=== PATIENT | male | born 1990 | race African-American/Black ===

== ENCOUNTER 2019-07-31 12:07 | Emergency (ER) | payer OTHER ==
[2019-07-31] MEDS ORDERED: KETOROLAC 30 MG/1 ML INJ IV ONE (12:41)
[2019-07-31] MEDS ORDERED: HYDROmorphone 1 MG/1 ML INJ IV ONE ×3 (12:41→14:26)
[2019-07-31] MEDS ORDERED: ONDANSETRON 4 MG/2 ML INJ IV ONE (12:41)
--- NOTE | 2019-07-31 12:45 | Emergency Department Report ---
HPI - HPI HPI: Room 20 The patient is 28-year-old male presenting with a chief complaint right sided abdominal pain. Patient states his pain began this morning with pain in the right lower quadrant. Patient missed and nausea and vomiting. The patient speaks limited [place] Location: [See above] Duration: [See above] Quality: [See above] Severity: [See above] Timing: [See above] Context: [See above] Modifying factors: [See above] Associated signs and symptoms: [see above] <TYLER ANNA - Last Filed: 07/31/19 14:48> <RONNELL MORALES - Last Filed: 07/31/19 15:58> - General Chief Complaint: Abdominal Pain Time Seen by Provider: 07/31/19 12:34 ED Past Medical Hx - Past Medical History Previous Medical History?: No - Surgical History Past Surgical History?: No - Family History Family history: no significant - Social History Smoking Status: Unknown if ever smoked Substance Use Type: None <TYLER ANNA - Last Filed: 07/31/19 14:48> <RONNELL MORALES - Last Filed: 07/31/19 15:58> - Medications Home Medications: Home Medications Medication Instructions Recorded Confirmed Last Taken Type HYDROcodone/APAP 5-325 [[place] 1 - 2 each PO Q6HR PRN #20 tablet 07/31/19 Unknown Rx 5/325] Ibuprofen [Motrin 800 MG tab] 800 mg PO Q8HR PRN #20 tablet 07/31/19 Unknown Rx Promethazine [Phenergan] 25 mg PO Q6HR PRN #20 tab 07/31/19 Unknown Rx ED Review of Systems ROS: Stated complaint: ABD PAIN Other details as noted in HPI Gastrointestinal: abdominal pain, nausea, vomiting <TYLER ANNA - Last Filed: 07/31/19 14:48> ROS: Stated complaint: ABD PAIN Other details as noted in HPI <RONNELL MORALES - Last Filed: 07/31/19 15:58> Physical Exam - Physical Exam Vital Signs: Vital Signs 07/31/19 12:17 Temperature 97.9 F Pulse Rate 74 Respiratory 22 Rate Blood Pressure 127/84 O2 Sat by Pulse 98 Oximetry Physical Exam: GENERAL: The patient is well-developed well-nourished male lying on appearing to be in moderate discomfort. [] HEENT: Normocephalic. Atraumatic. Extraocular motions are intact. Patient has moist mucous membranes. NECK: Supple. Trachea midline CHEST/LUNGS: Clear to auscultation. There is no respiratory distress noted. HEART/CARDIOVASCULAR: Regular. There is no tachycardia. There is no gallop rub or murmur. ABDOMEN: Abdomen is soft, with tenderness to palpation in the right side of the abdomen without rebound or guarding. Patient has normal bowel sounds. There is no abdominal distention. SKIN: There is no rash. There is no edema. There is no diaphoresis. NEURO: The patient is awake, alert, and oriented. The patient is cooperative. The patient has no focal neurologic deficits. The patient has normal speech MUSCULOSKELETAL: There is no CVA tenderness. There is no evidence of acute injury. <TYLER ANNA - Last Filed: 07/31/19 14:48> - Physical Exam Vital Signs: Vital Signs 07/31/19 07/31/19 07/31/19 12:17 13:00 14:41 Temperature 97.9 F 98.4 F Pulse Rate 74 60 Respiratory 22 16 18 Rate Blood Pressure 127/84 Blood Pressure 124/89 [Right] O2 Sat by Pulse 98 100 Oximetry 07/31/19 15:30 Temperature Pulse Rate 80 Respiratory 16 Rate Blood Pressure Blood Pressure 121/76 [Right] O2 Sat by Pulse 100 Oximetry <RONNELL MORALES - Last Filed: 07/31/19 15:58> ED Course Vital Signs 07/31/19 12:17 Temperature 97.9 F Pulse Rate 74 Respiratory 22 Rate Blood Pressure 127/84 O2 Sat by Pulse 98 Oximetry <TYLER ANNA - Last Filed: 07/31/19 14:48> Vital Signs 07/31/19 07/31/19 07/31/19 12:17 13:00 14:41 Temperature 97.9 F 98.4 F Pulse Rate 74 60 Respiratory 22 16 18 Rate Blood Pressure 127/84 Blood Pressure 124/89 [Right] O2 Sat by Pulse 98 100 Oximetry 07/31/19 15:30 Temperature Pulse Rate 80 Respiratory 16 Rate Blood Pressure Blood Pressure 121/76 [Right] O2 Sat by Pulse 100 Oximetry <RONNELL MORALES - Last Filed: 07/31/19 15:58> ED Medical Decision Making - Lab Data Result diagrams: 07/31/19 12:43 07/31/19 12:43 - Radiology Data Radiology results: report reviewed (CT abdomen and pelvis), image reviewed (CT abdomen and pelvis) [facility] [address] [place] [address] Cat Scan Report Signed Patient: KYLE ALEMAN MR#: [id number] : 1990 Acct:[id number] Age/Sex: 28 / M ADM Date: 07/31/19 Loc: ED Attending Dr: Ordering Physician: TYLER ANNA MD Date of Service: 07/31/19 Procedure(s): CT abdomen pelvis wo con Accession Number(s): [id number] cc: TYLER ANNA MD CT ABDOMEN AND PELVIS WITHOUT CONTRAST INDICATION / CLINICAL INFORMATION: right abdominal pain, nausea vomiting. TECHNIQUE: Axial CT images were obtained through the abdomen and pelvis without IV contrast. All CT scans at this [facility] are performed using CT dose reduction for ALARA by means of automated exposure control. COMPARISON: None available. FINDINGS: LOWER CHEST: No significant abnormality. LIVER: No significant abnormality. GALLBLADDER: No significant abnormality. BILE DUCTS: No significant abnormality. PANCREAS: No significant abnormality. SPLEEN: No significant abnormality. ADRENALS: No significant abnormality. RIGHT KIDNEY and URETER: There is a 2 to 3 mm stone at the right ureterovesical junction. Minimal dilation of the right ureter, but no significant right hydronephrosis. LEFT KIDNEY and URETER: Punctate, nonobstructive stone in the left mid kidney. No hydronephrosis or ureteral stone. STOMACH and SMALL BOWEL: No significant abnormality. COLON: No significant abnormality. APPENDIX: No significant abnormality. PERITONEUM: No free fluid. No free air. No fluid collection. LYMPH NODES: No significant adenopathy. AORTA and ARTERIES: No significant abnormality. IVC and VEINS: No significant abnormality. URINARY BLADDER: No significant abnormality. REPRODUCTIVE ORGANS: No significant abnormality. ADDITIONAL FINDINGS: None. SKELETAL SYSTEM: No significant abnormality. IMPRESSION: 1. A 2 to 3 mm stone at the right ureterovesical junction results in minimal dilation of the right ureter but no significant hydronephrosis. 2. Punctate nonobstructive stone in the left kidney. Signer Name: Alyce Warren MD Signed: 07/31/2019 1:59 PM Workstation Name: [id number] Transcribed By: HRC Dictated By: Alyce Warren MD Electronically Authenticated By: Alyce Warren MD Signed Date/Time: 07/31/19 1359 DD/ 1355 TD/TT: - Differential Diagnosis renal colic, appendicitis, cholelithiasis <DEMARIONoelTYLER K - Last Filed: 07/31/19 14:48> - Lab Data Result diagrams: 07/31/19 12:43 07/31/19 12:43 Lab Results 07/31/19 07/31/19 07/31/19 Range/Units 12:43 12:43 13:06 WBC 10.1 (4.5-11.0) K/mm3 RBC 5.26 H (3.65-5.03) M/mm3 Hgb 15.1 (11.8-15.2) gm/dl Hct 44.8 (35.5-45.6) % MCV 85 (84-94) fl MCH 29 (28-32) pg MCHC 34 (32-34) % RDW 13.3 (13.2-15.2) % Plt Count 252 (140-440) K/mm3 Lymph % (Auto) 19.1 (13.4-35.0) % [place] % (Auto) 5.6 (0.0-7.3) % Eos % (Auto) 0.6 (0.0-4.3) % Baso % (Auto) 0.3 (0.0-1.8) % Lymph # 1.9 (1.2-5.4) K/mm3 [place] # 0.6 (0.0-0.8) K/mm3 Eos # 0.1 (0.0-0.4) K/mm3 Baso # 0.0 (0.0-0.1) K/mm3 Seg Neutrophils % 74.4 H (40.0-70.0) % Seg Neutrophils # 7.5 (1.8-7.7) K/mm3 Sodium 139 (137-145) mmol/L Potassium 4.1 (3.6-5.0) mmol/L Chloride 103.6 (98-107) mmol/L Carbon Dioxide 20 L (22-30) mmol/L Anion Gap 20 mmol/L BUN 14 (9-20) mg/dL Creatinine 1.1 (0.8-1.5) mg/dL Estimated GFR > 60 ml/min BUN/Creatinine Ratio 13 % Glucose 103 H (75-100) mg/dL POC Glucose 87 (70-105) Calcium 9.0 (8.4-10.2) mg/dL Total Bilirubin 0.50 (0.1-1.2) mg/dL AST 17 (5-40) units/L ALT 31 (7-56) units/L Alkaline Phosphatase 52 (35-129) units/L Total Protein 7.5 (6.3-8.2) g/dL Albumin 4.2 (3.9-5) g/dL Albumin/Globulin Ratio 1.3 % Urine Color (Yellow) Urine Turbidity (Clear) Urine pH (5.0-7.0) Ur Specific [place] (1.003-1.030) Urine Protein (Negative) mg/dL Urine Glucose (UA) (Negative) mg/dL Urine Ketones (Negative) mg/dL Urine Blood (Negative) Urine Nitrite (Negative) Urine Bilirubin (Negative) Urine Urobilinogen (<2.0) mg/dL Ur Leukocyte Esterase (Negative) Urine WBC (Auto) (0.0-6.0) /HPF Urine RBC (Auto) (0.0-6.0) /HPF U Epithel Cells (Auto) (0-13.0) /HPF Urine Mucus /HPF 07/31/19 Range/Units 14:49 WBC (4.5-11.0) K/mm3 RBC (3.65-5.03) M/mm3 Hgb (11.8-15.2) gm/dl Hct (35.5-45.6) % MCV (84-94) fl MCH (28-32) pg MCHC (32-34) % RDW (13.2-15.2) % Plt Count (140-440) K/mm3 Lymph % (Auto) (13.4-35.0) % [place] % (Auto) (0.0-7.3) % Eos % (Auto) (0.0-4.3) % Baso % (Auto) (0.0-1.8) % Lymph # (1.2-5.4) K/mm3 [place] # (0.0-0.8) K/mm3 Eos # (0.0-0.4) K/mm3 Baso # (0.0-0.1) K/mm3 Seg Neutrophils % (40.0-70.0) % Seg Neutrophils # (1.8-7.7) K/mm3 Sodium (137-145) mmol/L Potassium (3.6-5.0) mmol/L Chloride (98-107) mmol/L Carbon Dioxide (22-30) mmol/L Anion Gap mmol/L BUN (9-20) mg/dL Creatinine (0.8-1.5) mg/dL Estimated GFR ml/min BUN/Creatinine Ratio % Glucose (75-100) mg/dL POC Glucose (70-105) Calcium (8.4-10.2) mg/dL Total Bilirubin (0.1-1.2) mg/dL AST (5-40) units/L ALT (7-56) units/L Alkaline Phosphatase (35-129) units/L Total Protein (6.3-8.2) g/dL Albumin (3.9-5) g/dL Albumin/Globulin Ratio % Urine Color Yellow (Yellow) Urine Turbidity Clear (Clear) Urine pH 5.0 (5.0-7.0) Ur Specific [place] 1.024 (1.003-1.030) Urine Protein <15 mg/dl (Negative) mg/dL Urine Glucose (UA) Neg (Negative) mg/dL Urine Ketones Neg (Negative) mg/dL Urine Blood Neg (Negative) Urine Nitrite Neg (Negative) Urine Bilirubin Neg (Negative) Urine Urobilinogen < 2.0 (<2.0) mg/dL Ur Leukocyte Esterase Neg (Negative) Urine WBC (Auto) 4.0 (0.0-6.0) /HPF Urine RBC (Auto) 2.0 (0.0-6.0) /HPF U Epithel Cells (Auto) 2.0 (0-13.0) /HPF Urine Mucus 3+ /HPF <RONNELL MORALES - Last Filed: 07/31/19 15:58> Critical care attestation.: If time is entered above; I have spent that time in minutes in the direct care of this critically ill patient, excluding procedure time. <TYLER ANNA - Last Filed: 07/31/19 14:48> Critical care attestation.: If time is entered above; I have spent that time in minutes in the direct care of this critically ill patient, excluding procedure time. <RONNELL MORALES - Last Filed: 07/31/19 15:58> ED Disposition Is pt being admited?: No Does the pt Need Aspirin: No <TYLER ANNA - Last Filed: 07/31/19 14:48> Is pt being admited?: No Does the pt Need Aspirin: No Time of Disposition: 15:58 <RONNELL MORALES - Last Filed: 07/31/19 15:58> Clinical Impression: Renal colic on right side, Acute abdominal pain Disposition: TO HOME OR SELFCARE Condition: Stable Instructions: Renal Colic (ED) Additional Instructions: Return to the emergency department should you develop worsening symptoms, inability to tolerate food or liquids, high fever or any other concerns Prescriptions: Ibuprofen [Motrin 800 MG tab] 800 mg PO Q8HR PRN #20 tablet PRN Reason: Pain, Moderate (4-6) HYDROcodone/APAP 5-325 [[place] 5/325] 1 - 2 each PO Q6HR PRN #20 tablet PRN Reason: Pain Promethazine [Phenergan] 25 mg PO Q6HR PRN #20 tab PRN Reason: Nausea Referrals: SANCHO LIN MD [Staff Physician] - 3-5 Days (Dr. Lin is a urologist. Please follow-up with him for further evaluation)
[2019-07-31 13:08] LABS: Basophils % (Auto) 0.3 % (0.0-1.8); Eosinophils # (Auto) 0.1 K/mm3 (0.0-0.4); Eosinophils % (Auto) 0.6 % (0.0-4.3); Hematocrit 44.8 % (35.5-45.6); Hemoglobin 15.1 gm/dl (11.8-15.2); Lymphocytes # (Auto) 1.9 K/mm3 (1.2-5.4); Lymphocytes % (Auto) 19.1 % (13.4-35.0); Mean Corpuscular HGB Conc 34 % (32-34); Mean Corpuscular Volume 85 fl (84-94); Monocytes # (Auto) 0.6 K/mm3 (0.0-0.8); Monocytes % (Auto) 5.6 % (0.0-7.3); Platelet Count 252 K/mm3 (140-440); Red Blood Count 5.26 M/mm3 (3.65-5.03); Red Cell Distribution Width 13.3 % (13.2-15.2)
[2019-07-31 13:24] LABS: Alanine Aminotransferase 31 units/L (7-56); Albumin 4.2 g/dL (3.9-5); BUN/Creatinine Ratio 13; Blood Urea Nitrogen 14 mg/dL (9-20); Hemolysis Index 6
--- NOTE | 2019-07-31 14:04 | Cat Scan Report ---
CT ABDOMEN AND PELVIS WITHOUT CONTRAST INDICATION / CLINICAL INFORMATION: right abdominal pain, nausea vomiting. TECHNIQUE: Axial CT images were obtained through the abdomen and pelvis without IV contrast. All CT scans at [facility] are performed using CT dose reduction for ALARA by means of automated exposure control. COMPARISON: None available. FINDINGS: LOWER CHEST: No significant abnormality. LIVER: No significant abnormality. GALLBLADDER: No significant abnormality. BILE DUCTS: No significant abnormality. PANCREAS: No significant abnormality. SPLEEN: No significant abnormality. ADRENALS: No significant abnormality. RIGHT KIDNEY and URETER: There is a 2 to 3 mm stone at the right ureterovesical junction. Minimal dil ation of the right ureter, but no significant right hydronephrosis. LEFT KIDNEY and URETER: Punctate, nonobstructive stone in the left mid kidney. No hydronephrosis or u reteral stone. STOMACH and SMALL BOWEL: No significant abnormality. COLON: No significant abnormality. APPENDIX: No significant abnormality. PERITONEUM: No free fluid. No free air. No fluid collection. LYMPH NODES: No significant adenopathy. AORTA and ARTERIES: No significant abnormality. IVC and VEINS: No significant abnormality. URINARY BLADDER: No significant abnormality. REPRODUCTIVE ORGANS: No significant abnormality. ADDITIONAL FINDINGS: None. SKELETAL SYSTEM: No significant abnormality. IMPRESSION: 1. A 2 to 3 mm stone at the right ureterovesical junction results in minimal dilation of the right ur eter but no significant hydronephrosis. 2. Punctate nonobstructive stone in the left kidney. Signer Name: Alyce Warren MD Signed: 07/31/2019 1:59 PM Workstation Name: [id number]
[2019-07-31 15:07] LABS: Bilirubin,Urine NEG (Negative); Blood,Urine NEG (Negative); Color,Urine Yellow (Yellow); Mucus,Urine 3+ /HPF; Protein,Urine <15 mg/dL mg/dL (Negative); Urobilinogen,Urine < 2.0 mg/dL (<2.0)
[2019-07-31 16:40] VITALS: BP 119/81
== END 2019-07-31 17:12 | disposition home or self-care (01) ==
LOC: ED 12:07
DX: N23 Unspecified renal colic (principal)
CPT/HCPCS: 36415; 74176; 80053; 81001; 82962; 85025; 96374; 96375; 96376; 99284; J1170; J1885; J2405